=== PATIENT | female | born 1970 | race Caucasian/White ===

== ENCOUNTER 2017-10-14 19:07 | Emergency (ER) | payer OTHER, SELFPAY ==
[2017-10-14 20:06] LABS: Bilirubin Negative (Negative); Blood, Urine Negative (Negative); Clarity CLEAR (Clear); Glucose, Urine (Dipstick) Negative (Negative); Leukocyte Trace (Negative); Nitrite Negative (Negative); Protein, Urine (Dipstick) Negative (Neg-Trace); Specific Gravity, Urine 1.019 (1.002-1.036); Urobilinogen 0.2 mg/dL (0.2-1.0)
[2017-10-14 20:07] LABS: Pregnancy Test - Urine (BHCG) Negative (Negative); Pregu Control Background? CLEAR/WHITE (CLR/WHITE); Pregu Control Bar Appear? YES (CONTROL BAR); Specific Gravity 1.019 (1.002-1.036)
[2017-10-14 20:09] LABS: Bacteria/HPF Rare-Few HPF (None Seen); Hyaline Casts/LPF 0-3 HYALINE CAST LPF (0-3 Hyaline); Pathc Cast-AUWi Flag 0.27 (0-2.49); RBC/HPF 0-3 HPF (0-3); Squamous Epithelial 0-3 HPF (0-3)
[2017-10-14] MEDS ORDERED: Ketorolac Tromethamine 30 MG/ML VIAL ONE (20:59)
== END 2017-10-14 21:08 | disposition home or self-care (01) ==
LOC: ERS 19:07
DX: M54.42 Lumbago with sciatica, left side (principal); E11.9 Type 2 diabetes mellitus without complications; I10 Essential (primary) hypertension; J45.909 Unspecified asthma, uncomplicated; F41.9 Anxiety disorder, unspecified; F31.9 Bipolar disorder, unspecified; F17.210 Nicotine dependence, cigarettes, uncomplicated
CPT/HCPCS: 81003; 81015; 81025; 87077; 87086; 87186; 96372; 99406; J1885

== ENCOUNTER 2018-01-30 03:05 | Inpatient (IN) | payer SELFPAY ==
[2018-01-30 04:27] LABS: CKMB 0.5 ng/mL (0-6.6); Troponin I 0.023 ng/mL (< 0.028)
[2018-01-30 04:43] LABS: #Eosinphils 0.2 thou/uL (0.0-0.7); #Lymphocytes 1.6 thou/uL (1.20-3.40); #Monocytes 0.5 thou/uL (0.11-0.59); #Neutrophils 6.9 thou/uL (1.40-6.50); %Basophils 0.4 % (0.0-1.0); %Eosinophils 1.8 % (0.0-10.0); %Lymphocytes 17.2 % (21.0-51.0); %Monocytes 5.3 % (0.0-10.0); %Neutrophils 75.3 % (42.0-75.0); Hemoglobin 16.5 g/dL (12.0-16.0); Mean Corpuscular Hemoglobin 32.9 pg (27.0-31.0); Mean Corpuscular Volume 93.9 fl (81.0-99.0); Mean Platelet Volume 8.1 fL (7.4-10.4); Platelet Count 219 thou/uL (130-400); RBC Distribution Width 12.7 % (11.5-14.5); Red Blood Cell (RBC) Count 5.03 mill/uL (4.20-5.40); White Blood Cell (WBC) Count 9.2 thou/uL (4.8-10.8)
[2018-01-30 05:05] LABS: Albumin 3.9 g/dL (3.5-5.0)
[2018-01-30 05:06] LABS: Chloride 100 mmol/L (98-107); Potassium 4.1 mmol/L (3.5-5.1); Sodium 134 mmol/L (136-145)
[2018-01-30 05:07] LABS: Calcium 10.1 mg/dL (7.8-10.44)
[2018-01-30 05:08] LABS: Globulin 4.6 g/dL (2.4-3.5); Glucose 156 mg/dL (70-105); Protein, Total 8.5 g/dL (6.0-8.3)
[2018-01-30 05:09] LABS: Anion Gap 22 mmol/L (10-20); Bilirubin, Total 0.2 mg/dL (0.2-1.2); Carbon Dioxide 16 mmol/L (22-29)
[2018-01-30 05:10] LABS: Alkaline Phosphatase 64 U/L (40-150)
[2018-01-30 05:11] LABS: Calc. Creatinine Clearance 0 mL/min (70-130); Estimated GFR-MDRD 70
[2018-01-30 05:12] LABS: BUN (Urea Nitrogen) 21 mg/dL (7.0-18.7)
[2018-01-30 05:13] LABS: AST (SGOT) 16 U/L (5-34)
[2018-01-30 05:14] LABS: ALT (SGPT) 12 U/L (8-55)
[2018-01-30] MEDS ORDERED: Metoprolol Tartrate 50 MG TAB ONE (05:18)
[2018-01-30 05:37] LABS: BHCG - Serum Negative (NEGATIVE); Pregs Control Background? CLEAR/WHITE (CLR/WHITE); Pregs Control Bar Appear? YES (CONTROL BAR)
[2018-01-30 05:49] LABS: Troponin I 0.024 ng/mL (< 0.028)
[2018-01-30] MEDS ORDERED: Morphine 4 MG/ML VIAL ONE (06:45)
[2018-01-30] MEDS ORDERED: hydrALAZINE 20 MG/ML VIAL ONE (07:26)
--- NOTE | 2018-01-30 07:51 | CT ---
CONTRAST ENHANCED CTA CHEST: HISTORY: A 47-year-old female with a history of chest pain radiating into the left upper extremity, shortness of breath. TECHNIQUE: Contrast-enhanced CTA chest is performed; 2D and 3D reconstructed images performed on an independent 3D work station. FINDINGS: Some diffuse ground-glass airspace opacity is seen in both upper lobes. These may represent possible bilateral upper lobe pulmonary edema. No evidence of a filling defect is seen in the pulmonary rainer coleman to suggest pulmonary emboli. There is some moderate paratracheal, AP window, subcarinal, pretracheal, and bilateral hilar lymphade nopathy. These may be reactive. Correlate with followup imaging. Malignancy could not be completel y excluded. No evidence of filling defect seen in the pulmonary arteries, no evidence of pleural or pericardial effusion seen. IMPRESSION: Mild to moderate degree of extensive mediastinal lymph node enlargement at multiple levels. Differen tial diagnosis includes malignancy versus reactive changes. POS: [facility]
[2018-01-30] MEDS ORDERED: Nitroglycerin 2% Ointment 1 INCH/1 GM Packet ONE (08:00)
[2018-01-30] MEDS ORDERED: Senokot 8.6 MG TAB PO PRN ×2 (08:09)
[2018-01-30] MEDS ORDERED: hydrALAZINE 20 MG/ML VIAL SLOW IVP PRN (08:09)
[2018-01-30] MEDS ORDERED: Benzonatate 100 MG CAP PO PRN (08:09)
[2018-01-30] MEDS ORDERED: Diabetic Tussin 200 MG/10 ML UDCUP PO PRN (08:09)
[2018-01-30] MEDS ORDERED: Ondansetron HCl/PF 4 MG/2 ML Vial IVP PRN (08:09)
[2018-01-30] MEDS ORDERED: Nitroglycerin 0.4 MG TAB (25 Tab Bottle) SL PRN (08:09)
[2018-01-30] MEDS ORDERED: Bisacodyl 5 MG TAB PO PRN ×2 (08:09)
[2018-01-30] MEDS ORDERED: Calcium Carbonate 500 MG ChewTAB PO PRN (08:09)
[2018-01-30] MEDS ORDERED: cloNIDine 0.1 MG TAB PO PRN (08:09)
[2018-01-30] MEDS ORDERED: Lorazepam 1 MG TAB PO PRN (08:09)
[2018-01-30] MEDS ORDERED: Mag-Al 1200 mg/1200 mg/30 ML UDCUP PO PRN (08:09)
[2018-01-30] MEDS ORDERED: Loratadine 10 MG TAB PO PRN (08:09)
[2018-01-30 08:41] LABS: Troponin I 0.027 ng/mL (< 0.028)
[2018-01-30] MEDS ORDERED: PROVENTIL INHALER 6.7 G (200 INHALATIONS) INH PRN (08:44)
[2018-01-30] MEDS ORDERED: Ondansetron ODT 4 MG TAB PO SCH (09:15)
[2018-01-30] MEDS ORDERED: Ondansetron ODT 8 MG TAB ONE (09:15)
--- NOTE | 2018-01-30 09:22 | RAD ---
TWO VIEWS CHEST: HISTORY: Abnormal chest x-ray. FINDINGS: PA and lateral views of chest are obtained on 01/30/18. Comparison is made to previous exam from 09/21. AP view chest demonstrates ACDF plates and screws in place. The lungs are well aerated. No evidence of active intrathoracic disease is seen. No evidence of effusions, pneumonia, or pneumothorax is se en. IMPRESSION: Unremarkable 2 views chest. POS: [facility]
[2018-01-30] MEDS ORDERED: HumaLOG 300 UNITS/3 ML VIAL SC PRN (09:42)
[2018-01-30] MEDS ORDERED: Dextrose 5% in Water 1,000 ML IV PRN (09:42)
[2018-01-30] MEDS ORDERED: Dextrose 50% Abboject 50 ML SYRINGE SLOW IVP PRN (09:42)
[2018-01-30 10:14] VITALS: BMI 37.7
[2018-01-30 11:09] LABS: Hemoglobin A1c 6.1 % (4.0-6.0)
[2018-01-30 11:25] LABS: Troponin I 0.022 ng/mL (< 0.028)
[2018-01-30] MEDS: traMADol HCl 50 MG TAB PO PRN ×2 (11:42→18:46)
[2018-01-30] MEDS: Enoxaparin Sodium 40 MG/0.4 ML SYRINGE SC SCH (11:42)
[2018-01-30] MEDS: Lisinopril 20 MG TAB PO SCH ×2 (11:42→19:56)
[2018-01-30] MEDS: Cyclobenzaprine 10 MG TAB PO PRN ×2 (11:42→19:56)
[2018-01-30] MEDS: Amlodipine 10 MG TAB PO SCH (11:42)
[2018-01-30] MEDS: Nitroglycerin 2% Ointment 1 INCH/1 GM Packet TOP SCH ×2 (14:06→21:20)
[2018-01-30] MEDS ORDERED: ISOVUE-370 76%-LOCM 1 ML ONE (16:39)
[2018-01-30] MEDS: Metoprolol Tartrate 50 MG TAB PO SCH (19:57)
[2018-01-31 05:20] LABS: #Lymphocytes 0.6 thou/uL (1.20-3.40); #Monocytes 0.3 thou/uL (0.11-0.59); #Neutrophils 12.1 thou/uL (1.40-6.50); %Basophils 0.1 % (0.0-1.0); %Eosinophils 0.2 % (0.0-10.0); %Lymphocytes 4.7 % (21.0-51.0); %Monocytes 2.3 % (0.0-10.0); %Neutrophils 92.7 % (42.0-75.0); Hemoglobin 14.1 g/dL (12.0-16.0); Mean Corpuscular HGB CONC 35.2 g/dL (32.0-36.0); Mean Platelet Volume 7.5 fL (7.4-10.4); Platelet Count 161 thou/uL (130-400); RBC Distribution Width 12.8 % (11.5-14.5); Red Blood Cell (RBC) Count 4.39 mill/uL (4.20-5.40); White Blood Cell (WBC) Count 13.1 thou/uL (4.8-10.8)
[2018-01-31] MEDS: Nitroglycerin 2% Ointment 1 INCH/1 GM Packet TOP SCH (05:24)
[2018-01-31 05:55] LABS: Anion Gap 21 mmol/L (10-20); BUN (Urea Nitrogen) 18 mg/dL (7.0-18.7); Calc. Creatinine Clearance 146 mL/min (70-130); Calcium 8.8 mg/dL (7.8-10.44); Carbon Dioxide 13 mmol/L (22-29); Chloride 101 mmol/L (98-107); Estimated GFR-MDRD 78; Glucose 144 mg/dL (70-105); Potassium 3.8 mmol/L (3.5-5.1); Sodium 131 mmol/L (136-145)
--- NOTE | 2018-01-31 07:54 | HP ---
DATE OF ADMISSION: 01/30/2018 PRIMARY CARE PHYSICIAN: None. CHIEF COMPLAINT: Chest pain and shortness of breath. HISTORY OF PRESENTING ILLNESS: Ms. Carreon is a 47-year-old female with past medical history of hypertension, mild diabetes and significant tobacco abuse who presented to the ER last night with above-mentioned complaint. History is mainly obtained by the patient herself and electronic medical records have been reviewed. The patient was here in 05/2017 with similar complaints. At that time, she underwent a thorough card iac evaluation including transthoracic echocardiogram, nuclear medicine stress test and Cardiology co nsultation by Dr. Mejía. All of her workup was unremarkable. She was found to be having uncontroll ed hypertension and was discharged on adequate medications. Ms. Carreon presented today when she was woken up in the middle of night with a sharp spasm-like pain i n her left chest, going down her left arm and her ring finger. It was followed by sharp spasm under her left breast going up in the center. This was associated with some shortness of breath. The pain got worse to the point where she presented to the emergency room. She denies any recent illnesses. No fever, chills, cough, orthopnea, or PND. She does report that she has been under a lot of stress yesterday because of her family situation. She also reports that she has not been able to afford he r medications for the last 3 months including the metformin and has not been checking her blood press ure or blood sugar at home. She continues to smoke one pack of cigarettes per day. Upon presentation to the emergency room, she was in hypertensive urgency with blood pressure of systo lic over 200. Her EKG was unremarkable. Her cardiac enzymes were trended and were negative x2. Her D-dimer was checked and was elevated, so she underwent a CT angio of the thorax where the CT angio w as negative for pulmonary embolism, but shows moderate to extensive mediastinal lymph node enlargemen t at multiple levels. She has received oral Lopressor as well as IV hydralazine and nitroglycerin pa kellee in the emergency room and is now being admitted for further workup of the chest pain. At this time, she is still experiencing some discomfort and her blood pressure is still above 230 sys tolic and 110 diastolic. I discussed the stress test that she had gotten done 8 months ago and at th is time she is not desirous to get another one. PAST MEDICAL HISTORY: 1. Hypertension. 2. Diabetes mellitus. 3. Tobacco abuse. 4. Possible chronic obstructive pulmonary disease. ALLERGIES 1. Seasonal allergies. 2. Anxiety. 3. Bipolar disorder. PAST SURGICAL HISTORY: 1. Right arm surgery. 2. Cholecystectomy. 3. Tonsillectomy 4. Tubal ligation. PSYCHIATRIC HISTORY: Anxiety and bipolar disorder. SOCIAL HISTORY: She smokes 1 pack of cigarettes per day for approximately 31 years. No history of d rug or alcohol abuse. FAMILY HISTORY: Father was an alcoholic who at the age of 62, otherwise no significant family h istory of premature coronary artery disease or stroke. Multiple family members have diabetes. HOME MEDICATIONS: The patient is currently not taking any medications. ALLERGIES: No known medication allergies. REVIEW OF SYSTEMS: The following complete review of systems was negative, unless otherwise mentioned in the HPI or below: Constitutional: Weight loss or gain, ability to conduct usual activities. Skin: Rash, itching. Eyes: Double vision, pain. ENT/Mouth: Nose bleeding, neck stiffness, pain, tenderness. Cardiovascular: Palpitations, dyspnea on exertion, orthopnea. Respiratory: Shortness of breath, wheezing, cough, hemoptysis, fever or night sweats. Gastrointestinal: Poor appetite, abdominal pain, heartburn, nausea, vomiting, constipation, or diarr hea. Genitourinary: Urgency, frequency, dysuria, nocturia. Musculoskeletal: Pain, swelling. Neurologic/Psychiatric: Anxiety, depression. Allergy/Immunologic: Skin rash, bleeding tendency. It is negative except for those mentioned in the history and physical. LABORATORY DATA AND IMAGING DATA: Her CBC is unremarkable. Hemoglobin of 16.5. D-dimer 0.62. Seru m chemistries show sodium 134, bicarbonate 16, anion gap 22, BUN 21, creatinine normal. Blood sugar 156, CK-MB 0.5, troponin 0.023, then 0.024, then 0.027. Serum test is negative. Chest x-r ay by my review has no evidence to suggest any effusion, edema or infiltrate. CT angio by my review as per above. Twelve lead EKG per ER physician is negative for any acute ST or T-wave changes. PHYSICAL EXAMINATION: VITAL SIGNS: Most recent vital signs, blood pressure 236/115, pulse of 87, respirations 22, saturati ng 96% on room air, temperature 98.7. GENERAL: She is sitting up in bed, unable to lie flat and looks very anxious. She is easily winded. Her whole room smells of cigarette nauseatingly. She is awake, alert, and oriented x3. HEENT: Mucous membrane is moist and pink. No oropharyngeal exudate or erythema. Head is normocepha lic and atraumatic. Pupils are equal and reactive to light and accommodation. Extraocular movement intact. NECK: Supple without any lymphadenopathy, JVD or bruit. CHEST: Clear to auscultation without any wheezing, rales or rhonchi, but breath sounds are diminishe d in both sides throughout the lungs. Rate and rhythm is regular without any murmur, rubs or gallops . ABDOMEN: Obese, soft, nontender, nondistended, positive bowel sounds. EXTREMITIES: Have trace pitting edema without any clubbing or cyanosis. SKIN: Free of any rashes or bruises. I feel warm and dry to touch. PSYCHIATRIC: She appears anxious. NEUROLOGIC: Examination is nonfocal. IMPRESSION AND PLAN: 1. Chest pain. This is secondary to uncontrolled hypertension which is secondary to medication nonc ompliance. She will be restarted on her KRISTI inhibitor, beta lisa and we will stop the hydrochloro thiazide and replace it with amlodipine. Aggressive blood pressure control should be provided. We w ill add p.r.n. antihypertensive and also use nitro paste still her blood pressure is improved. She w ill be monitored closely on telemetry unit. ACS has been ruled out with serial cardiac enzymes and a negative cardiac workup just few months ago. We will also start her on nebulizers and inhalers as n eeded. We will also use p.r.n. pain medications and muscle relaxant as some of her symptoms can be s econdary to muscle spasms. 2. Uncontrolled hypertension. The patient will be aggressively treated as above. We will add Norva sc and restart beta lisa and KRISTI inhibitor and p.r.n. antihypertensives. At this time, thankfully , she does not have any evidence of end organ damage. She will require prescriptions for all the med ications and outpatient setup with her primary care physician, which she says she cannot afford. 3. Mediastinal lymphadenopathy. This is an incidental finding in the CT scan. Most likely, it is r eactive, but malignancy also needs to be ruled out. I have discussed this with the patient and she jeremy little to get an outpatient CT scan in 3-6 months for followup. She verbalized understanding. 4. Diabetes mellitus. The patient reports that she has not taken metformin for a while, but she was told that her hemoglobin A1c is very low and she would not need it. We will recheck the hemoglobin A1c. For the time being, we will use insulin sliding scale and if her hemoglobin A1c is abnormal, we will start her on metformin again. Also, consult a dietitian for diabetic diet education. The narinder ent is willing to try. 5. Tobacco abuse, extensive counseling was done with the patient and she seems receptive. 6. Morbid obesity. Weight loss is advised. 7. History of anxiety and bipolar illness. Currently, not on any medications. Monitor symptoms, se ems to be stable at this time. 8. Code status: Full code. DISPOSITION: Ms. Carreon is currently being admitted for chest pain and uncontrolled hypertensive urge ncy. Estimated length of stay is less than 2 midnights at this time. Further management will depend upon her clinical course.
[2018-01-31] MEDS: Amlodipine 10 MG TAB PO SCH (09:00)
[2018-01-31] MEDS: Metoprolol Tartrate 50 MG TAB PO SCH (09:02)
[2018-01-31] MEDS: Lisinopril 20 MG TAB PO SCH (09:02)
[2018-01-31] MEDS: Enoxaparin Sodium 40 MG/0.4 ML SYRINGE SC SCH (09:02)
[2018-01-31] MEDS: Cyclobenzaprine 10 MG TAB PO PRN ×2 (09:02→20:49)
[2018-01-31] MEDS ORDERED: Doxycycline 100 MG CAP PO SCH (09:45)
[2018-01-31 10:13] LABS: Lactic Acid 1.2 mmol/L (0.5-2.2)
[2018-01-31 10:17] LABS: Anion Gap 18 mmol/L (10-20); BUN (Urea Nitrogen) 16 mg/dL (7.0-18.7); Calc. Creatinine Clearance 154 mL/min (70-130); Calcium 8.7 mg/dL (7.8-10.44); Carbon Dioxide 16 mmol/L (22-29); Chloride 99 mmol/L (98-107); Estimated GFR-MDRD 82; Glucose 154 mg/dL (70-105); Potassium 3.5 mmol/L (3.5-5.1); Sodium 129 mmol/L (136-145)
[2018-01-31] MEDS: traMADol HCl 50 MG TAB PO PRN (10:39)
[2018-01-31 11:03] LABS: Bilirubin Negative (Negative); Blood, Urine Negative (Negative); Clarity CLEAR (Clear); Glucose, Urine (Dipstick) Negative (Negative); Leukocyte Small (Negative); Nitrite Negative (Negative); Protein, Urine (Dipstick) Trace mg/dL (Neg-Trace); Specific Gravity, Urine 1.025 (1.002-1.036); Urobilinogen 0.2 mg/dL (0.2-1.0); pH, Urine 5.5 (5.0-9.0)
[2018-01-31 11:05] LABS: Hyaline Casts/LPF 0-3 HYALINE CAST LPF (0-3 Hyaline); Pathc Cast-AUWi Flag 0.14 (0-2.49); RBC/HPF 0-3 HPF (0-3); Squamous Epithelial 0-3 HPF (0-3); WBC/HPF 21-50 HPF (0-3); Yeast-AUWi Flag 29.5 (0-25.0)
[2018-01-31 11:21] LABS: Bacteria/HPF 2+ HPF (None Seen); Yeast-All Forms None Seen HPF (None Seen)
[2018-01-31] MEDS: Acetaminophen 325 MG TAB PO PRN ×2 (11:40→20:50)
[2018-01-31] MEDS: HumaLOG 300 UNITS/3 ML VIAL SC PRN (11:40)
--- NOTE | 2018-01-31 18:50 | PDOC.PN ---
- Subjective Encounter Start Date: 01/31/18 Encounter Start Time: 10:00 Patient seen and examined. No new complaints. No overnight events. Feels gen weak. Dysuria - Objective MAR Reviewed: Yes Vital Signs & Weight: Vital Signs (12 hours) Temp Pulse Resp BP BP Pulse Ox 01/31/18 13:06 98.3 F 85 14 128/77 93 L 01/31/18 13:00 98.3 F 85 14 93 L 01/31/18 10:48 100 F H 85 20 122/64 95 01/31/18 09:02 176/81 H 01/31/18 09:00 104 H 176/81 H 01/31/18 07:35 98.9 F 104 H 20 01/31/18 07:07 98.9 F 104 H 20 176/81 H 90 L Weight Weight 233 lb 11.2 oz I&O: 01/30/18 01/31/18 02/01/18 06:59 06:59 06:59 Intake Total 1200 810 Output Total 600 Balance 600 810 Result Diagrams: 01/31/18 04:02 01/31/18 09:43 Additional Labs: Accuchecks 01/31/18 01/31/18 01/30/18 16:52 10:52 20:52 POC Glucose 187 H 187 H 141 H EKG Reviewed by me: Yes (Tele SR) Phys Exam - Physical Examination Constitutional: NAD HEENT: PERRLA Neck: no nodes, no JVD Respiratory: no wheezing, no rales Symmetrical, Scat rhonchi Cardiovascular: RRR, no rub no heaves/pulsations Gastrointestinal: soft, non-tender, no distention, positive bowel sounds Musculoskeletal: no edema Neurological: non-focal, normal sensation, moves all 4 limbs Psychiatric: normal affect, A&O x 3 Dx/Plan - Plan DVT proph w/lovenox, DVT proph w/SCDs IMPRESSION: 1. HTN urgency 2. CP - negative trop, Neg stress test last yr 3. Sepsis due to UTI 4. DM2 5. Mediastinal lymphadenopathy - ?reactive 6. Tobacco dep / Other issues per previous notes PLAN: * Blood & urine cultures * Reduce dosages of Lisinopril/Amlodipine * Change Metoprolol to Coreg * AM labs * IV Atbx for UTI * Add Doxycycline due to possible URTI * Cont to monitor Laboratory Tests 0401/31/18 01/31/18 09:43 09:43 10:50 Lactic Acid 1.2 Urine WBC 21-50 H Urine Bacteria 2+ H B-Hydroxybutyrate 0.24 Review of Systems - Review of Systems Respiratory: negative: Cough, Dry, Shortness of Breath, Hemoptysis, SOB with Excertion, Pleuritic Pain, Sputum, Wheezing Cardiovascular: negative: chest pain, palpitations, orthopnea, paroxysmal nocturnal dyspnea, edema, light headedness, other - Medications/Allergies Allergies/Adverse Reactions: Allergies Allergy/AdvReac Type Severity Reaction Status Date / Time No Known Allergies Allergy Verified 10/09/16 03:02 Medications: Current Medications Acetaminophen (Tylenol) 650 mg PO Q4H PRN PRN Reason: Headache/Fever or Pain Last Admin: 01/31/18 11:40 Dose: 650 mg Al Hydroxide/Mg Hydroxide (Maalox) 30 ml PO Q6H PRN PRN Reason: Heartburn or Indigestion Albuterol Sulfate (Proventil Hfa) 1 puff INH QID PRN PRN Reason: sob Albuterol/Ipratropium (Duoneb) 3 ml NEB [id number] PRN PRN Reason: SOB &/or Wheezing Amlodipine Besylate (Norvasc) 10 mg PO DAILY [facility] Last Admin: 01/31/18 09:00 Dose: 10 mg Benzonatate (Tessalon) 100 mg PO Q4H PRN PRN Reason: Cough Bisacodyl (Dulcolax) 10 mg PO DAILYPRN PRN PRN Reason: Constipation Calcium Carbonate (Tums) 1,000 mg PO Q4H PRN PRN Reason: Heartburn or Indigestion Last Admin: 01/31/18 09:05 Dose: 1,000 mg Clonidine (Catapres) 0.1 mg PO Q4H PRN PRN Reason: Systolic BP > 160 Cyclobenzaprine HCl (Flexeril) 10 mg PO TID PRN PRN Reason: Muscle Spasm Last Admin: 01/31/18 09:02 Dose: 10 mg Dextrose/Water (Dextrose 50%) 25 gm SLOW IVP PRN PRN PRN Reason: Hypoglycemia Doxycycline Hyclate (Vibramycin) 100 mg PO BID [facility] Enoxaparin Sodium (Lovenox) 40 mg SC 0900 [facility] Last Admin: 01/31/18 09:02 Dose: 40 mg Glucagon (Glucagon) 1 mg IM PRN PRN PRN Reason: Hypoglycemia Guaifenesin (Robitussin Sf) 200 mg PO Q4H PRN PRN Reason: Cough Hydralazine HCl (Apresoline) 10 mg SLOW IVP Q4H PRN PRN Reason: Systolic BP > 170 Dextrose/Water (D5w) 1,000 mls @ 0 mls/hr IV .Q0M PRN; As Directed PRN Reason: Hypoglycemia Levofloxacin 500 mg/ Device 100 mls @ 100 mls/hr IVPB 1000 [facility] Last Admin: 01/31/18 10:37 Dose: 100 mls Insulin Human Lispro (Humalog) 0 units SC .MILD SLIDING SCALE PRN PRN Reason: Mild Correctional Scale Last Admin: 01/31/18 11:40 Dose: 2 unit Insulin Human Lispro (Humalog) 0 units SC .BEDTIME SLIDING SC PRN PRN Reason: Bedtime Correctional Scale Lisinopril (Zestril) 20 mg PO BID [facility] Last Admin: 01/31/18 09:02 Dose: 20 mg Loratadine (Claritin) 10 mg PO DAILYPRN PRN PRN Reason: Sinus Symptoms Lorazepam (Ativan) 1 mg PO Q4H PRN PRN Reason: Anxiety/Agitation Metoprolol Tartrate (Lopressor) 50 mg PO BID [facility] Last Admin: 01/31/18 09:02 Dose: 50 mg Nitroglycerin (Nitrostat) 0.4 mg SL Q5MIN PRN PRN Reason: Chest Pain Ondansetron HCl (Zofran) 4 mg IVP Q6H PRN PRN Reason: Nausea/Vomiting Senna (Senokot) 2 tab PO HSPRN PRN PRN Reason: Constipation Senna (Senokot) 2 tab PO HSPRN PRN PRN Reason: Constipation Sodium Chloride (Flush - Normal Saline) 10 ml IVF Q12HR [facility] Sodium Chloride (Flush - Normal Saline) 10 ml IVF PRN PRN PRN Reason: Saline Flush Tramadol HCl (Ultram) 50 mg PO Q4H PRN PRN Reason: Moderate Pain (4-6) Last Admin: 01/31/18 10:39 Dose: 50 mg
[2018-01-31] MEDS: Doxycycline 100 MG CAP PO SCH (21:39)
[2018-02-01] MEDS: Acetaminophen 325 MG TAB PO PRN ×2 (01:18→09:03)
[2018-02-01] MEDS: traMADol HCl 50 MG TAB PO PRN (01:19)
[2018-02-01 04:44] LABS: #Eosinphils 0.2 thou/uL (0.0-0.7); #Lymphocytes 0.5 thou/uL (1.20-3.40); #Monocytes 0.2 thou/uL (0.11-0.59); #Neutrophils 6.4 thou/uL (1.40-6.50); %Basophils 0.1 % (0.0-1.0); %Eosinophils 2.5 % (0.0-10.0); %Lymphocytes 6.8 % (21.0-51.0); %Monocytes 2.5 % (0.0-10.0); %Neutrophils 88.1 % (42.0-75.0); Hemoglobin 14.2 g/dL (12.0-16.0); Mean Corpuscular HGB CONC 34.9 g/dL (32.0-36.0); Mean Corpuscular Hemoglobin 33.1 pg (27.0-31.0); Mean Corpuscular Volume 94.8 fl (81.0-99.0); Mean Platelet Volume 8.5 fL (7.4-10.4); Platelet Count 128 thou/uL (130-400); RBC Distribution Width 12.9 % (11.5-14.5); Red Blood Cell (RBC) Count 4.28 mill/uL (4.20-5.40); White Blood Cell (WBC) Count 7.3 thou/uL (4.8-10.8)
[2018-02-01 05:11] LABS: ALT (SGPT) 16 U/L (8-55); AST (SGOT) 13 U/L (5-34); Albumin 3.2 g/dL (3.5-5.0); Alkaline Phosphatase 52 U/L (40-150); Anion Gap 14 mmol/L (10-20); BUN (Urea Nitrogen) 14 mg/dL (7.0-18.7); Bilirubin, Total 0.4 mg/dL (0.2-1.2); Calc. Creatinine Clearance 169 mL/min (70-130); Calcium 8.4 mg/dL (7.8-10.44); Carbon Dioxide 19 mmol/L (22-29); Chloride 104 mmol/L (98-107); Estimated GFR-MDRD Greater than 90; Globulin 3.2 g/dL (2.4-3.5); Glucose 153 mg/dL (70-105); Potassium 3.6 mmol/L (3.5-5.1); Protein, Total 6.4 g/dL (6.0-8.3); Sodium 133 mmol/L (136-145)
[2018-02-01] MEDS ORDERED: Amlodipine 5 MG TAB PO SCH (09:00)
[2018-02-01] MEDS ORDERED: Lisinopril 20 MG TAB PO SCH (09:00)
[2018-02-01] MEDS: Enoxaparin Sodium 40 MG/0.4 ML SYRINGE SC SCH (09:00)
[2018-02-01] MEDS: Doxycycline 100 MG CAP PO SCH ×2 (09:00→20:59)
[2018-02-01] MEDS: Carvedilol 6.25 MG TAB PO SCH ×2 (09:00→17:24)
[2018-02-01] MEDS: Cyclobenzaprine 10 MG TAB PO PRN ×2 (10:21→17:29)
[2018-02-01] MEDS: HumaLOG 300 UNITS/3 ML VIAL SC PRN (12:33)
[2018-02-01] MEDS ORDERED: Vancomycin HCl 1 GM in Premix Bag 1 BAG IVPB SCH (15:30)
[2018-02-01 17:17] LABS: Legionella Urinary Ag Negative (Negative); Strep pneumo Urine Ag NEGATIVE (NEGATIVE)
--- NOTE | 2018-02-01 17:22 | PDOC.PN ---
- Subjective Encounter Start Date: 02/01/18 Encounter Start Time: 16:30 Patient seen and examined. No overnight events. Feels weak - Objective MAR Reviewed: Yes Vital Signs & Weight: Vital Signs (12 hours) Temp Pulse Resp BP BP Pulse Ox 02/01/18 09:01 181/99 H 02/01/18 09:00 102 H 181/99 H 02/01/18 08:00 99.2 F 102 H 22 H 92 L 02/01/18 07:58 99.2 F 102 H 20 181/99 H 92 L Weight Weight 233 lb 11.2 oz I&O: 01/31/18 02/01/18 02/02/18 06:59 06:59 06:59 Intake Total 1200 810 Output Total 600 Balance 600 810 Result Diagrams: 02/01/18 03:50 02/01/18 03:50 Additional Labs: Accuchecks 02/01/18 02/01/18 01/31/18 11:07 05:21 20:52 POC Glucose 278 H 165 H 145 H 01/31/18 16:52 POC Glucose 187 H Phys Exam - Physical Examination Constitutional: NAD Neck: no JVD Respiratory: no wheezing, no rales Scat rhonchi, Symmetrical Cardiovascular: RRR, no rub no heaves/pulsations Gastrointestinal: soft, non-tender, positive bowel sounds Musculoskeletal: no edema Neurological: non-focal, normal sensation, moves all 4 limbs Psychiatric: normal affect, A&O x 3 Dx/Plan - Plan DVT proph w/SCDs IMPRESSION: 1. Sepsis due to UTI . 2. HTN urgency - BP still uncontrolled 3. CP - negative trop, Neg stress test last yr 4. DM2 - on sliding scale 5. Mediastinal lymphadenopathy - ?reactive 6. Tobacco dep / Other issues per previous notes PLAN: * Blood & urine cultures noted * Consult ID * Add Vancomycin * Increase dosages of Lisinopril/Amlodipine * Cont Coreg * AM labs * Cont to monitor * DC Lovenox - Pt ambulating in hallway Review of Systems - Review of Systems Respiratory: Cough, Dry. negative: Shortness of Breath, Hemoptysis, SOB with Excertion, Pleuritic Pain, Sputum, Wheezing Cardiovascular: negative: chest pain, palpitations, orthopnea, paroxysmal nocturnal dyspnea, edema, light headedness, other Gastrointestinal: negative: Nausea, Vomiting, Abdominal Pain, Diarrhea, Constipation, Melena, Hematochezia, Other - Medications/Allergies Allergies/Adverse Reactions: Allergies Allergy/AdvReac Type Severity Reaction Status Date / Time No Known Allergies Allergy Verified 10/09/16 03:02 Medications: Current Medications Acetaminophen (Tylenol) 650 mg PO Q4H PRN PRN Reason: Headache/Fever or Pain Last Admin: 02/01/18 09:03 Dose: 650 mg Al Hydroxide/Mg Hydroxide (Maalox) 30 ml PO Q6H PRN PRN Reason: Heartburn or Indigestion Albuterol Sulfate (Proventil Hfa) 1 puff INH QID PRN PRN Reason: sob Albuterol/Ipratropium (Duoneb) 3 ml NEB [id number] PRN PRN Reason: SOB &/or Wheezing Amlodipine Besylate (Norvasc) 5 mg PO BID [facility] Benzonatate (Tessalon) 100 mg PO Q4H PRN PRN Reason: Cough Bisacodyl (Dulcolax) 10 mg PO DAILYPRN PRN PRN Reason: Constipation Calcium Carbonate (Tums) 1,000 mg PO Q4H PRN PRN Reason: Heartburn or Indigestion Last Admin: 01/31/18 09:05 Dose: 1,000 mg Carvedilol (Coreg) 6.25 mg PO BID-[facility] Last Admin: 02/01/18 09:00 Dose: 6.25 mg Clonidine (Catapres) 0.1 mg PO Q4H PRN PRN Reason: Systolic BP > 160 Cyclobenzaprine HCl (Flexeril) 10 mg PO TID PRN PRN Reason: Muscle Spasm Last Admin: 02/01/18 10:21 Dose: 10 mg Dextrose/Water (Dextrose 50%) 25 gm SLOW IVP PRN PRN PRN Reason: Hypoglycemia Doxycycline Hyclate (Vibramycin) 100 mg PO BID [facility] Last Admin: 02/01/18 09:00 Dose: 100 mg Enoxaparin Sodium (Lovenox) 40 mg SC 09 [facility] Last Admin: 02/01/18 09:00 Dose: 40 mg Glucagon (Glucagon) 1 mg IM PRN PRN PRN Reason: Hypoglycemia Guaifenesin (Robitussin Sf) 200 mg PO Q4H PRN PRN Reason: Cough Hydralazine HCl (Apresoline) 10 mg SLOW IVP Q4H PRN PRN Reason: Systolic BP > 170 Dextrose/Water (D5w) 1,000 mls @ 0 mls/hr IV .Q0M PRN; As Directed PRN Reason: Hypoglycemia Levofloxacin 500 mg/ Device 100 mls @ 100 mls/hr IVPB 1000 [facility] Last Admin: 02/01/18 09:02 Dose: 100 mls Vancomycin HCl 2 gm/ Sodium (Chloride) 500 mls @ 250 mls/hr IVPB 1600 [facility] Stop: 02/01/18 18:00 Vancomycin HCl 1.5 gm/ Sodium (Chloride) 300 mls @ 200 mls/hr IVPB 0400,1600 [facility] Insulin Human Lispro (Humalog) 0 units SC .MILD SLIDING SCALE PRN PRN Reason: Mild Correctional Scale Last Admin: 02/01/18 12:33 Dose: 4 unit Insulin Human Lispro (Humalog) 0 units SC .BEDTIME SLIDING SC PRN PRN Reason: Bedtime Correctional Scale Lisinopril (Zestril) 20 mg PO BID [facility] Loratadine (Claritin) 10 mg PO DAILYPRN PRN PRN Reason: Sinus Symptoms Miscellaneous Medication (Pharmacy To Dose) 1 each IVPB PRN PRN PRN Reason: Pharmacy to dose Nitroglycerin (Nitrostat) 0.4 mg SL Q5MIN PRN PRN Reason: Chest Pain Ondansetron HCl (Zofran) 4 mg IVP Q6H PRN PRN Reason: Nausea/Vomiting Senna (Senokot) 2 tab PO HSPRN PRN PRN Reason: Constipation Senna (Senokot) 2 tab PO HSPRN PRN PRN Reason: Constipation Sodium Chloride (Flush - Normal Saline) 10 ml IVF Q12HR [facility] Last Admin: 02/01/18 09:02 Dose: 10 ml Sodium Chloride (Flush - Normal Saline) 10 ml IVF PRN PRN PRN Reason: Saline Flush Tramadol HCl (Ultram) 50 mg PO Q4H PRN PRN Reason: Moderate Pain (4-6) Last Admin: 02/01/18 01:19 Dose: 50 mg
--- NOTE | 2018-02-01 17:35 | CON ---
DATE OF CONSULTATION: 02/01/2018 REASON FOR CONSULTATION: Fever, abnormal CT chest findings. HISTORY OF PRESENT ILLNESS: A 47-year-old patient with history of hypertension , type 2 diabetes mellitus, chronic smoking, as well as COPD with previous admissions for respiratory decompensation within the past 2-3 years, who was in her usual state of health until about few days before when she noticed what she describes as increased fatigue. On the day of admission, she woke up around 2: 00 in the morning or actually she was still awake and trying to go to sleep and then she developed this what she describes as shooting pains along the left upper extremity, followed by pains in the submammary region which were related to breathing cycle with exacerbation with cough and deep breathing. She also noticed increasing coughing spells, but no sputum production. She was concerned of possibility of heart disease and within 30-45 minutes arrived at the emergency room in [facility] in [place]. Initial findings demonstrated a BP 230/115, pulse 87, respirations 22, O2 sat 96%, temperature 98.7. She appeared anxious. Neck was supple. Lungs with no wheezing or crackles. Breath sounds were felt to be diminished. Abdomen is soft, not distended. Initial laboratory data included a white cell count 9.2, hemoglobin 16, MCV 93, platelets 219, 75% neutrophils. INR was not done. D-dimer 0.62. Sodium 134, creatinine 0.86, potassium 4.1, calcium 10.1. Liver profile normal. Albumin 3.9. Urinalysis 21-50 wbc's. The patient had a chest x-ray, which was not remarkable. There was a chest CT with ground-glass infiltrates in the upper lobes and multiple small to moderately enlarged lymph nodes in the mediastinal area at multiple levels. The patient had 4 sets of blood cultures submitted, which are still negative to this date. She is currently receiving inhalers, Coreg, cyclobenzaprine, Lovenox, levofloxacin, and vancomycin. She is awake. She appears in no distress, coughing intermittently. No headaches. No visual symptoms, sore throat, odynophagia, or dysphagia. No ear or nasal symptoms. She has no teeth remaining, only maybe 1 or 2 left. No neck pain of significance. The chest pain is still there, but not as intense. The neuralgic pain in the left upper extremity less intense but still there. No back pain. No abdominal symptoms. No genitourinary symptoms. No joint symptoms except for chronic knee pain intermittently. PAST MEDICAL HISTORY: Hypertension, COPD/asthma, chronic smoking, type 2 diabetes. SOCIAL HISTORY: Chronic smoker, no drug use. No alcoholic beverage use. Lives in town with her daughters. She is originally from [place] and had lived in [place] for about a year before moving back to here. FAMILY HISTORY: Alcoholism. CURRENT MEDICATIONS: Current meds have been reviewed above, had not been taking any medications otherwise before admission. ALLERGIES: None. PHYSICAL EXAMINATION: VITAL SIGNS: T-max 101.3 yesterday and currently 99.2, blood pressure 125/77, pulse 102, respirations 22, O2 sat 92%. SKIN: Remarkable for peripheral IV access. No Luevano catheter. No lymphadenopathy. HEENT: Ocular movements are conjugate. Conjunctivae normal. Nasal passages patent. Ear exam normal. Oral cavity only 2 or 3 remaining teeth. Other aspects of the oral exam normal. NECK: Supple. No jugular vein distention. BACK: No tenderness in the neck area. LUNGS: With symmetric air entry. No crackles or wheezing. CARDIOVASCULAR: S1, S2, regular rate. No S3, S4. ABDOMEN: Soft and not distended or tender. No ascites. No bladder distention. EXTREMITIES: No joint inflammatory activity. Pulses 1+ in dorsalis pedis. No edema. Able to move extremities equally. Cognitive function appears to be intact. LABORATORY AND X-RAY FINDINGS: Latest labs findings, white cell count went up to 13 and now down to 7.3, hemoglobin 14, platelets 128,000. Sodium 134, creatinine 0.86. Liver profile normal. Albumin 3.9. Urinalysis 21-50 wbc's, trace protein. ASSESSMENT: 1. Type 2 diabetes. 2. Chronic obstructive pulmonary disease/asthma. 3. Chronic smoking. 4. Prior ACDF fusion, C-spine. 5. Neuropathic pain left upper extremity associated with a cough and chest pain , which is atypical with a normal cardiac stress test. 6. Mild to moderately enlarged mediastinal lymph nodes associated with some ground-glass changes in the upper lobes. DISCUSSION: Differential diagnosis includes viral or bacterial lower respiratory tract infection with reactive lymph nodes. Malignancy is less likely, but not ruled out. Autoimmune process including systemic lupus erythematosus also a possibility and may have to be evaluated depending on clinical laboratory results going forward. We will check a respiratory virus PCR panel, legionella strep pneumonia antigen in urine. Hepatitis C and HIV serology if not done yet. I think we do not need to image her neck in the absence of symptoms in that location this time. Continue monitoring blood cultures. MTDD
[2018-02-01] MEDS: Lisinopril 20 MG TAB PO SCH (20:59)
[2018-02-01] MEDS: Amlodipine 5 MG TAB PO SCH (21:00)
[2018-02-01] MEDS ORDERED: cefTRIAXone\\ROCEPHIN 1 GM in Sodium Chloride 0.9% 100 ML IVPB SCH (22:15)
[2018-02-01] MEDS ORDERED: cefTRIAXone\\ROCEPHIN 1 GM, Syringe 0.4 ML in Sterile Water 9.6 ML SLOW IVP SCH (23:00)
[2018-02-02] MEDS ORDERED: Vancomycin HCl 1.5 GM in Sodium Chloride 0.9% 250 ML 300 ML IVPB SCH (04:00)
[2018-02-02 04:59] LABS: #Eosinphils 0.3 thou/uL (0.0-0.7); #Lymphocytes 0.7 thou/uL (1.20-3.40); #Monocytes 0.4 thou/uL (0.11-0.59); #Neutrophils 3.4 thou/uL (1.40-6.50); %Basophils 0.8 % (0.0-1.0); %Eosinophils 6.6 % (0.0-10.0); %Lymphocytes 14.3 % (21.0-51.0); %Monocytes 7.3 % (0.0-10.0); Hemoglobin 12.9 g/dL (12.0-16.0); Mean Corpuscular HGB CONC 34.7 g/dL (32.0-36.0); Mean Corpuscular Hemoglobin 32.7 pg (27.0-31.0); Mean Corpuscular Volume 94.2 fl (81.0-99.0); Mean Platelet Volume 7.5 fL (7.4-10.4); Platelet Count 130 thou/uL (130-400); RBC Distribution Width 12.6 % (11.5-14.5); Red Blood Cell (RBC) Count 3.95 mill/uL (4.20-5.40); White Blood Cell (WBC) Count 4.9 thou/uL (4.8-10.8)
[2018-02-02 05:11] LABS: Anion Gap 10 mmol/L (10-20); BUN (Urea Nitrogen) 11 mg/dL (7.0-18.7); Calc. Creatinine Clearance 164 mL/min (70-130); Calcium 8.5 mg/dL (7.8-10.44); Carbon Dioxide 25 mmol/L (22-29); Chloride 106 mmol/L (98-107); Estimated GFR-MDRD 89; Glucose 139 mg/dL (70-105); Potassium 3.6 mmol/L (3.5-5.1); Sodium 137 mmol/L (136-145)
[2018-02-02] MEDS: Doxycycline 100 MG CAP PO SCH (09:29)
[2018-02-02] MEDS: Amlodipine 5 MG TAB PO SCH (09:29)
[2018-02-02] MEDS: Carvedilol 6.25 MG TAB PO SCH (09:29)
[2018-02-02] MEDS: Lisinopril 20 MG TAB PO SCH (09:29)
[2018-02-02 11:57] VITALS: BP 158/87; TEMP 99
[2018-02-02] MEDS: HumaLOG 300 UNITS/3 ML VIAL SC PRN (12:02)
[2018-02-02 13:08] LABS: Legionella Urinary Ag Negative (Negative); Strep pneumo Urine Ag NEGATIVE (NEGATIVE)
--- NOTE | 2018-02-03 02:27 | DIS ---
CHIEF COMPLAINT: Chest pain and shortness of breath. HOSPITAL COURSE: Patient initially presented to the hospital with chest pain and shortness of breath for the past couple of days. Patient stated that she started having sharp spasm like pain that went to her left chest area and then down her left arm and her ring finger. She did undergo a CTA of the chest, which indicated mild to moderate degree of extensive mediastinal lymph node enlargement at multiple levels. Patient initially was put on IV antibiotics. Patient also was found to be hypertensive. The patient states that she has not been taking her medications for the past 3 months. Infectious Disease was consulted, who recommended checking a HIV and strep and legionella urine. ESR was normal. CRP was mildly elevated at 12. Patient on the day of discharge states she is feeling better. She did not have any complaints. Upon further talking with the patient, I did stress the importance of taking medications regularly. The patient states that she cannot afford to go to her doctor even if it is a $10 copay. Pt states that her children pay for her cigarettes. I then asked her if her children would pay for her doctor's copay at this time she got very upset stating that it was very inappropriate of me telling her who i should ask money from. I did talk with the patient stating that it was all in good intention in regard to her health since patient was found to have significant elevation of blood pressure when she came in. Given the fact that she smokes which would worsen her situation over the years. Patient at this time stated that she wanted to be discharged and did not want to stay in the hospital anymore. I also discussed with the patient the importance of repeating the CT in the next couple of months to make sure that the lymph nodes were only reactive and would subside. Patient states that she does not have any money for getting her CAT scan done. I did tell the patient that she could come to the hospital, we will give her a script and she can set up a payment program with the hospital so she can pay for her CAT scan. However, the patient states that she will think about that. She was also asked to follow up with her PCP. We will also provide patient 3 months of medication, so that she has enough medications for the next 3 months. will provide meds for 3 months DISCHARGE MEDICATIONS: Upon discharge the patient's medications were as the following: Lisinopril 20 mg p.o. b.i.d., Coreg 25 mg p.o. b.i.d., Norvasc 5 mg p.o. b.i.d., Albuterol 1 puff q.i.d. p.r.n., Tessalon Perles 100 mg q.4 hours p.r.n., and doxycycline 100 mg p.o. b.i.d. Of note, the patient stated that she is not ready to quit smoking. PHYSICAL EXAMINATION: VITAL SIGNS: Temperature of 99.0, pulse of 82, respirations 16, saturation 96% on room air, and blood pressure 158/87. GENERAL: She is awake, alert, oriented x3, does not appear in distress. Patient was hard to come in a couple of times to see the patient since patient was down smoking. HEENT: Normocephalic, atraumatic. No lymphadenopathy noted. CARDIOVASCULAR: S1, S2 present. No murmurs, rubs or gallops. LUNGS: Clear to auscultation. No rhonchi or wheezes noted. ABDOMEN: Obese, soft. Bowel sounds are present x2. EXTREMITIES: No edema. Pedal pulses are present x2. Discharge dx mediastinal lymph node enlargement possible upper respiratory infection hypertension left side chest pain MTDD
== END 2018-02-02 16:39 | disposition home or self-care (01) | DRG 305 ==
LOC: ERS 03:05 → OBSVTOIN 08:00 → 2SW 08:00 → T4-A 01-31 13:11
PROVIDERS: ADMIT Internal Medicine; ATTEND Internal Medicine
DX: I16.0 Hypertensive urgency (principal); E66.01 Morbid (severe) obesity due to excess calories; F17.210 Nicotine dependence, cigarettes, uncomplicated; J06.9 Acute upper respiratory infection, unspecified; R59.0 Localized enlarged lymph nodes; F41.9 Anxiety disorder, unspecified; J30.2 Other seasonal allergic rhinitis; F31.9 Bipolar disorder, unspecified; T46.4X6A Underdosing of angiotensin-converting-enzyme inhibitors, initial encounter; Z71.3 Dietary counseling and surveillance; E11.9 Type 2 diabetes mellitus without complications; Z68.37 Body mass index [BMI] 37.0-37.9, adult; J44.9 Chronic obstructive pulmonary disease, unspecified; Z91.120 Patient's intentional underdosing of medication regimen due to financial hardship; I10 Essential (primary) hypertension
CPT/HCPCS: 36415; 36416; 71046; 71275; 80048; 80053; 81001; 82010; 82553; 83036; 83605; 83735; 84484; 84703; 85025; 85379; 85652; 86140; 87040; 87077; 87086; 87186; 87633; 87899; 93005; 96361; 96374; 96375; 96376; 99406; A4216; J0360; J0696; J1650; J1956; J2270; J3370; J7050; Q0162

== ENCOUNTER 2022-07-29 16:49 | Inpatient (IN) | payer SELFPAY ==
[2022-07-29] MEDS ORDERED: hydrALAZINE 20 MG/ML VIAL ONE (17:01)
[2022-07-29 17:35] LABS: #Eosinphils 0.1 thou/uL (0.0-0.7); #Lymphocytes 1.2 thou/uL (1.20-3.40); #Monocytes 0.3 thou/uL (0.11-0.59); #Neutrophils 5.8 thou/uL (1.40-6.50); %Basophils 0.7 % (0.0-1.0); %Eosinophils 1.6 % (0.0-10.0); %Lymphocytes 16.2 % (21.0-51.0); %Monocytes 4.1 % (0.0-10.0); %Neutrophils 77.5 % (42.0-75.0); Hemoglobin 16.7 g/dL (12.0-16.0); Mean Corpuscular HGB CONC 34.3 g/dL (32.0-36.0); Mean Platelet Volume 7.9 fL (7.4-10.4); Platelet Count 187 thou/uL (130-400); RBC Distribution Width 12.9 % (11.5-14.5); Red Blood Cell (RBC) Count 4.91 mill/uL (4.20-5.40); White Blood Cell (WBC) Count 7.5 thou/uL (4.8-10.8)
[2022-07-29 17:47] LABS: ALT (SGPT) 13 U/L (8-55); AST (SGOT) 14 U/L (5-34); Albumin 4.2 g/dL (3.5-5.0); Alkaline Phosphatase 73 U/L (40-110); Anion Gap 15 mmol/L (10-20); BUN (Urea Nitrogen) 14 mg/dL (9.8-20.1); Bilirubin, Total 0.5 mg/dL (0.2-1.2); Calc. Creatinine Clearance 0 mL/min (70-130); Calcium 9.4 mg/dL (7.8-10.44); Carbon Dioxide 27 mmol/L (22-29); Chloride 96 mmol/L (98-107); Estimated GFR 81; Globulin 3.6 g/dL (2.4-3.5); Glucose 262 mg/dL (70-105); Potassium 3.9 mmol/L (3.5-5.1); Protein, Total 7.8 g/dL (6.0-8.3); Sodium 134 mmol/L (136-145)
[2022-07-29] MEDS ORDERED: Nitroglycerin 2% Ointment 1 INCH/1 GM Packet ONE (18:07)
[2022-07-29] MEDS ORDERED: Labetalol HCl 100 MG/20 ML VIAL ONE (18:07)
[2022-07-29] MEDS ORDERED: methylPREDNISolone Sod Succ/PF 125 MG/2 ML VIAL ONE (18:07)
[2022-07-29] MEDS ORDERED: Dextrose 50% Abboject 50 ML SYRINGE SLOW IVP PRN (19:10)
[2022-07-29] MEDS ORDERED: Dextrose 5% in Water 1,000 ML IV PRN (19:10)
[2022-07-29 19:22] LABS: SARS-CoV-2 NAA Rapid Test Not Detected (NotDetected)
[2022-07-29] MEDS ORDERED: Magnesium Sulfate 2 GM in Sodium Chloride 0.9% 250 ML 250 ML IVPB SCH (19:30)
[2022-07-29] MEDS ORDERED: Cepastat Lozenges 1 LOZ PO PRN (20:15)
[2022-07-29] MEDS ORDERED: Benzonatate 100 MG CAP PO PRN (20:15)
[2022-07-29] MEDS ORDERED: Labetalol HCl 100 MG/20 ML VIAL SLOW IVP PRN (20:23)
[2022-07-29] MEDS ORDERED: Azithromycin 500 MG in Sodium Chloride 0.9% 250 ML 250 ML IVPB SCH (20:30)
[2022-07-29 21:03] LABS: Hemoglobin A1c 8.1 % (4.0-6.0)
[2022-07-29 21:11] VITALS: BMI 38.0
[2022-07-29 21:34] LABS: Magnesium 1.6 mg/dL (1.6-2.6)
[2022-07-29] MEDS: Acetaminophen 325 MG TAB PO PRN (21:37)
[2022-07-29] MEDS ORDERED: Acetaminophen 325 MG TAB ONE (21:39)
[2022-07-29] MEDS ORDERED: Acetaminophen 325 MG Suppository ONE (21:39)
[2022-07-29] MEDS ORDERED: Azithromycin 200 MG/5 ML Oral Suspension PO SCH (21:45)
[2022-07-29] MEDS: Albuterol Sulfate 1.25 MG/3 ML NEB INH SCH (22:02)
[2022-07-29 22:50] LABS: Troponin I 0.026 ng/mL (< 0.028)
[2022-07-29] MEDS ORDERED: Lisinopril 10 MG TAB ONE (22:57)
[2022-07-29] MEDS ORDERED: cefTRIAXone\\ROCEPHIN 1 GM VIAL ONE (22:57)
[2022-07-29] MEDS ORDERED: Magnesium 2 GM/50 ML BAG (IN WATER) ONE (22:57)
[2022-07-29] MEDS: Lisinopril 20 MG TAB PO SCH (23:03)
[2022-07-29] MEDS ORDERED: Amlodipine 10 MG TAB PO SCH (23:59)
[2022-07-30] MEDS: cefTRIAXone\\ROCEPHIN 1 GM in Sodium Chloride 0.9% 100 ML IVPB SCH ×2 (00:46→21:10)
[2022-07-30] MEDS ORDERED: methylPREDNISolone Sod Succ 40 MG VIAL ONE ×3 (01:10→11:50)
[2022-07-30] MEDS: methylPREDNISolone Sod Succ 40 MG VIAL IVP SCH ×5 (01:31→16:43)
[2022-07-30 01:39] LABS: Troponin I 0.046 ng/mL (< 0.028)
[2022-07-30] MEDS ORDERED: Nicotine 14 MG PATCH ONE (01:43)
[2022-07-30] MEDS: Nicotine 14 MG PATCH TD SCH ×2 (02:01→20:59)
[2022-07-30] MEDS: Albuterol Sulfate 1.25 MG/3 ML NEB INH SCH ×6 (02:16→21:36)
[2022-07-30] MEDS ORDERED: Electrolyte Replacement Protocol 1 EACH FS SCH (02:45)
[2022-07-30] MEDS ORDERED: HYDROcodone/Acetaminophen 5/325 mg Tablet ONE ×2 (03:24→08:06)
[2022-07-30] MEDS: HYDROcodone/Acetaminophen 5/325 mg Tablet PO PRN ×4 (03:26→21:41)
[2022-07-30] MEDS ORDERED: Acetaminophen 325 MG TAB ONE (05:06)
[2022-07-30] MEDS: Acetaminophen 325 MG TAB PO PRN (05:08)
[2022-07-30 05:32] LABS: Anion Gap 23 mmol/L (10-20); BUN (Urea Nitrogen) 11 mg/dL (9.8-20.1); Calc. Creatinine Clearance 120 mL/min (70-130); Calcium 9.2 mg/dL (7.8-10.44); Carbon Dioxide 16 mmol/L (22-29); Chloride 97 mmol/L (98-107); Estimated GFR 74; Glucose 308 mg/dL (70-105); Magnesium 1.9 mg/dL (1.6-2.6); Potassium 3.9 mmol/L (3.5-5.1); Sodium 132 mmol/L (136-145)
[2022-07-30 05:36] LABS: Troponin I 0.026 ng/mL (< 0.028)
[2022-07-30 07:11] LABS: Hemoglobin 15.8 g/dL (12.0-16.0); Mean Corpuscular HGB CONC 34.1 g/dL (32.0-36.0); Mean Corpuscular Hemoglobin 33.5 pg (27.0-31.0); Mean Corpuscular Volume 98.4 fL (78.0-98.0); Mean Platelet Volume 8.3 fL (7.4-10.4); Platelet Count 186 thou/uL (130-400); RBC Distribution Width 13.3 % (11.5-14.5); Red Blood Cell (RBC) Count 4.71 mill/uL (4.20-5.40); White Blood Cell (WBC) Count 17.3 thou/uL (4.8-10.8)
[2022-07-30 07:26] LABS: Troponin I 0.027 ng/mL (< 0.028)
[2022-07-30 07:42] LABS: Band 14 % (5-11); Lymphocytes 2 % (21-51); MDiff Complete? YES; Neutrophil 84 % (42-75); Platelet Morphology Comment Appears Adequate; Polychromasia SLIGHT = 2-3 cells (100X) (0-2/hpf)
[2022-07-30] MEDS ORDERED: Magnesium 2 GM/50 ML(in water) 2 GM in Premix Bag 1 BAG IVPB SCH (08:00)
[2022-07-30] MEDS ORDERED: Magnesium 2 GM/50 ML BAG (IN WATER) ONE (08:06)
[2022-07-30] MEDS: Carvedilol 6.25 MG TAB PO SCH ×2 (08:16→16:42)
[2022-07-30] MEDS: Amlodipine 10 MG TAB PO SCH (08:56)
[2022-07-30] MEDS: Hydrochlorothiazide 25 MG TAB PO SCH (08:56)
[2022-07-30] MEDS: Lisinopril 20 MG TAB PO SCH ×2 (08:56→20:59)
[2022-07-30] MEDS ORDERED: Enoxaparin Sodium 40 MG/0.4 ML SYRINGE SC SCH (09:00)
[2022-07-30] MEDS ORDERED: Azithromycin 200 MG/5 ML Oral Suspension PO SCH (09:00)
[2022-07-30] MEDS ORDERED: HumaLOG 300 UNITS/3 ML VIAL ONE (11:49)
[2022-07-30] MEDS: HumaLOG 300 UNITS/3 ML VIAL SC PRN ×3 (11:59→20:58)
[2022-07-30] MEDS ORDERED: FLU VACC QS2022-23(6MOS UP)/PF 60 MCG/0.5 ML SYRINGE IM ONE (15:45)
[2022-07-31] MEDS: Albuterol Sulfate 1.25 MG/3 ML NEB INH SCH ×6 (01:57→21:54)
[2022-07-31] MEDS: HYDROcodone/Acetaminophen 5/325 mg Tablet PO PRN ×4 (03:45→22:11)
[2022-07-31] MEDS: methylPREDNISolone Sod Succ 40 MG VIAL IVP SCH (05:05)
[2022-07-31 05:16] LABS: Anion Gap 14 mmol/L (10-20); BUN (Urea Nitrogen) 18 mg/dL (9.8-20.1); Calc. Creatinine Clearance 121 mL/min (70-130); Calcium 9.7 mg/dL (7.8-10.44); Carbon Dioxide 25 mmol/L (22-29); Chloride 98 mmol/L (98-107); Estimated GFR 75; Glucose 338 mg/dL (70-105); Potassium 4.1 mmol/L (3.5-5.1); Sodium 133 mmol/L (136-145)
[2022-07-31 05:21] LABS: #Lymphocytes 0.3 thou/uL (1.20-3.40); #Monocytes 0.2 thou/uL (0.11-0.59); #Neutrophils 12.8 thou/uL (1.40-6.50); %Eosinophils 0.2 % (0.0-10.0); %Lymphocytes 2.3 % (21.0-51.0); %Monocytes 1.4 % (0.0-10.0); %Neutrophils 96.1 % (42.0-75.0); Hemoglobin 15.3 g/dL (12.0-16.0); Mean Corpuscular HGB CONC 34.4 g/dL (32.0-36.0); Mean Corpuscular Hemoglobin 34.7 pg (27.0-31.0); Mean Platelet Volume 8.4 fL (7.4-10.4); Platelet Count 189 thou/uL (130-400); RBC Distribution Width 13.2 % (11.5-14.5); Red Blood Cell (RBC) Count 4.42 mill/uL (4.20-5.40); White Blood Cell (WBC) Count 13.3 thou/uL (4.8-10.8)
[2022-07-31] MEDS: HumaLOG 300 UNITS/3 ML VIAL SC PRN ×4 (05:21→21:39)
[2022-07-31] MEDS ORDERED: predniSONE 5 MG TAB PO SCH (08:30)
[2022-07-31] MEDS ORDERED: Insulin Glargine 30 UNITS/0.3 ML VIAL SC SCH (08:30)
[2022-07-31] MEDS: Carvedilol 6.25 MG TAB PO SCH ×2 (08:47→17:37)
[2022-07-31] MEDS: Aspirin 81 mg Enteric Coated Tablet PO SCH (08:47)
[2022-07-31] MEDS: Lisinopril 20 MG TAB PO SCH ×2 (08:48→21:39)
[2022-07-31] MEDS: Amlodipine 10 MG TAB PO SCH (08:48)
[2022-07-31] MEDS: Hydrochlorothiazide 25 MG TAB PO SCH (08:48)
[2022-07-31] MEDS: Atorvastatin Calcium 20 MG TAB PO SCH (08:48)
[2022-07-31] MEDS: metFORMIN 500 MG TAB PO SCH (17:37)
[2022-07-31] MEDS: Mometasone/Formoterol 200/5 60 PUFF INH SCH (18:35)
[2022-07-31] MEDS: cefTRIAXone\\ROCEPHIN 1 GM in Sodium Chloride 0.9% 100 ML IVPB SCH (21:39)
[2022-07-31] MEDS: Nicotine 14 MG PATCH TD SCH (21:39)
[2022-08-01] MEDS: HYDROcodone/Acetaminophen 5/325 mg Tablet PO PRN ×2 (02:14→08:27)
[2022-08-01] MEDS: Albuterol Sulfate 1.25 MG/3 ML NEB INH SCH ×3 (02:19→11:08)
[2022-08-01] MEDS: HumaLOG 300 UNITS/3 ML VIAL SC PRN (05:55)
[2022-08-01] MEDS: Mometasone/Formoterol 200/5 60 PUFF INH SCH (07:31)
[2022-08-01] MEDS ORDERED: predniSONE 5 MG TAB PO SCH (08:00)
[2022-08-01] MEDS: Atorvastatin Calcium 20 MG TAB PO SCH (08:18)
[2022-08-01] MEDS: Amlodipine 10 MG TAB PO SCH (08:18)
[2022-08-01] MEDS: metFORMIN 500 MG TAB PO SCH (08:18)
[2022-08-01] MEDS: Carvedilol 6.25 MG TAB PO SCH (08:18)
[2022-08-01] MEDS: Aspirin 81 mg Enteric Coated Tablet PO SCH (08:18)
[2022-08-01] MEDS: Lisinopril 20 MG TAB PO SCH (08:19)
[2022-08-01] MEDS: Hydrochlorothiazide 25 MG TAB PO SCH (08:19)
[2022-08-01] MEDS ORDERED: Insulin Glargine 30 UNITS/0.3 ML VIAL SC SCH (11:45)
[2022-08-01 11:54] VITALS: BP 162/74; TEMP 98
== END 2022-08-01 12:57 | disposition home or self-care (01) | DRG 191 ==
LOC: ERS 16:49 → ERHOLD 18:27 → 2SW 07-30 14:56 → OBSVTOIN 07-30 15:23
PROVIDERS: ADMIT Internal Medicine; ATTEND Internal Medicine
DX: J44.1 Chronic obstructive pulmonary disease with (acute) exacerbation (principal); E87.1 Hypo-osmolality and hyponatremia; I16.1 Hypertensive emergency; J96.10 Chronic respiratory failure, unspecified whether with hypoxia or hypercapnia; I10 Essential (primary) hypertension; E11.9 Type 2 diabetes mellitus without complications; F17.210 Nicotine dependence, cigarettes, uncomplicated; F31.9 Bipolar disorder, unspecified; F41.9 Anxiety disorder, unspecified; Z88.8 Allergy status to other drugs, medicaments and biological substances; Z79.82 Long term (current) use of aspirin; Z79.84 Long term (current) use of oral hypoglycemic drugs; Z79.51 Long term (current) use of inhaled steroids; Z79.899 Other long term (current) drug therapy; Z99.81 Dependence on supplemental oxygen
CPT/HCPCS: 36415; 36416; 70450; 71045; 80048; 80053; 82553; 83036; 83735; 83880; 84443; 84484; 85025; 90471; 90686; 93005; 94640; 94760; 96374; 96375; 96376; G0008; J0360; J0696; J1815; J2920; J2930; J3475; J3490; J7050; J7512; J7620